=== PATIENT | male | born 2000 | race Hispanic/Latino ===

== ENCOUNTER 2024-01-05 12:09 | Emergency (ER) | payer SELFPAY ==
[2024-01-05] MEDS ORDERED: Acetaminophen 500 MG TAB ONE (14:23)
[2024-01-05 14:47] LABS: Bacteria/HPF None Seen HPF (None Seen); Bilirubin Negative (Negative); Blood, Urine Negative (Negative); CAUTI Indications for Culture Pelvic or flank pain; Clarity Clear (Clear); Glucose, Urine (Dipstick) Normal (Negative); Ketone, Urine Negative (Negative); Leukocyte Negative Leu/uL (Negative); Nitrite Negative (Negative); Protein, Urine (Dipstick) Negative (Neg-Trace); RBC/HPF 0-3 HPF (0-3); Specific Gravity, Urine 1.008 (1.002-1.036); Squamous Epithelial None Seen HPF (0-3); Urobilinogen Normal mg/dL (Less than 2); WBC/HPF 0-3 HPF (0-3)
[2024-01-05 14:49] LABS: Urine Culture Reflex No No
== END 2024-01-05 16:24 | disposition home or self-care (01) ==
LOC: ERS 12:09
DX: S20.222A Contusion of left back wall of thorax, initial encounter (principal); Z75.8 Other problems related to medical facilities and other health care; W22.8XXA Striking against or struck by other objects, initial encounter
CPT/HCPCS: 72072; 72100; 81001